=== PATIENT | female | born 1960 ===

== ENCOUNTER 2019-02-16 07:37 | Day surgery (SDC) | payer OTHER ==
[2019-02-14 14:25] VITALS: BMI 33.3
[2019-02-16 08:15] LABS: EPI CELLS 3.5 /HPF (0-5/HPF); HYALINE CASTS 1 /lpf (0-8); URINE APPEARANCE CLEAR; URINE BACTERIA 15.6 /hpf (NEGATIVE); URINE BILIRUBIN NEGATIVE (NEGATIVE); URINE COLOR YELLOW; URINE GLUCOSE (UA) NEGATIVE (NEGATIVE); URINE KETONE NEGATIVE (NEGATIVE); URINE LEUK ESTERASE NEGATIVE (NEGATIVE); URINE NITRITE NEGATIVE (NEGATIVE); URINE PROTEIN 1+ (NEGATIVE); URINE RBC 3 /hpf (0-4); URINE UROBILINOGEN 0.2 mg/dL (0.2-1.0); URINE WBC 3 /hpf (0-5)
[2019-02-16 08:22] LABS: INR 1.02 (0.83-1.09)
--- NOTE | 2019-02-16 08:22 | HP ---
Satellite [facility] - Chief Complaint Chief Complaint: right shoulder pain History of Present Illness: right shoulder impingement, RTC tear, labral tear History Source: Patient Limitations to Obtaining History: No Limitations - Past Medical History Allergies/Adverse Reactions: Allergies Allergy/AdvReac Type Severity Reaction Status Date / Time No Known Drug Allergies Allergy Verified 02/16/19 08:18 - Current Medications Current Medications: Home Medications Medication Instructions Recorded NK [No Known Home Medication] 02/14/19 Satellite Physical Exam - Physical Examination Vital Signs: Vital Signs Period Temp Pulse Resp BP Sys/Mccartney Pulse Ox Last 24 Hr 97.9 F 75 18 140/71 98 General Appearance: Well Nourished ENT: Clear Lung: Clear to auscultation Heart: Regular rate & rhythm Breasts: Soft Abdomen: Soft Extremities: No edema Satellite Impression/Plan - Impression/Plan Impression: right shoulder impingement, RTC tear, labral tear Operative Procedure: right shoulder arthroscopy, decompression, RTC repair, labral repair Date to be Performed: 02/16/19
[2019-02-16 08:25] LABS: ACTIVATED PTT 40.8 SECONDS (25.2-36.5)
[2019-02-16] MEDS ORDERED: MIDAZOLAM HCL 2 MG/2 ML SINGLE DOSE VIAL ONE ×2 (09:15)
[2019-02-16] MEDS ORDERED: DEXAMETHASONE SOD PHOSPHATE/PF 10 MG/ML SDV ONE (09:18)
[2019-02-16] MEDS ORDERED: ROPIVACAINE HCL 0.5% 30ML VIAL ONE (09:18)
[2019-02-16] MEDS ORDERED: PROPOFOL 20 ML ONE (10:09)
[2019-02-16] MEDS ORDERED: oxyCODONE HCL 5 MG TABLET PO PRN (10:26)
[2019-02-16] MEDS ORDERED: ONDANSETRON 4 MG/2 ML VIAL IVPUSH PRN (10:26)
[2019-02-16] MEDS ORDERED: LACTATED RINGERS SOLUTION 1,000 ML IV SCH (10:30)
[2019-02-16] MEDS ORDERED: ceFAZolin SODIUM 1 GM VIAL ONE (10:46)
[2019-02-16] MEDS ORDERED: ceFAZolin SODIUM 1 GM VIAL IVPB ONE (10:50)
[2019-02-16] MEDS ORDERED: DEXAMETHASONE SOD PHOSPHATE 4 MG/1 ML VIAL ONE (10:50)
--- NOTE | 2019-02-16 11:49 | OP ---
Operative Note - Note: Operative Date: 02/16/19 Pre-Operative Diagnosis: right shoulder impingement syndrome Operation: right shoulder arthroscopy, subacromial decompression, distal clavicle excision Post-Operative Diagnosis: Same as Pre-op Surgeon: Rod Early Anesthesiologist/CERTIFIED TECHNICIAN SPECIALIST: Megan Patel Anesthesia: General, Local Specimens Removed: shavings Estimated Blood Loss (mls): 25 Drains, Volume Out (mls): 0 Blood Volume Replaced (mls): 0 Fluid Volume Replaced (mls): 700 Operative Report Dictated: Yes
[2019-02-16 14:58] VITALS: BP 145/86; PULSE 97; TEMP 97.5
--- NOTE | 2019-02-16 15:31 | SPEC ---
DATE OF OPERATION: 02/16/2019 PREOPERATIVE DIAGNOSIS: Right shoulder impingement syndrome. POSTOPERATIVE DIAGNOSIS: Right shoulder impingement syndrome. PROCEDURE: Right shoulder arthroscopy, subacromial decompression, distal clavicle excision. SURGEON: Fredy Barragan MD ASSISTANTS: None. ANESTHESIA: EMRE Manuel. Right interscalene block with LM anesthesia. DRAINS: None. COMPLICATIONS: None. SPECIMEN: Arthroscopic shavings. BLOOD LOSS: Minimal. BLOOD GIVEN: None. FLUID REPLACEMENT: 700 mL Plasmalyte. This patient is a 58-year-old female with a preoperative diagnosis of right shoulder impingement syndrome, possible rotator cuff tear, possible labral tear. After understanding the potential risks, complications, alternatives, and benefits to surgery versus nonsurgical treatment, the patient elects to undergo this procedure. The patient was brought to the operating room, peripheral IV placed, IV sedation given. Then 2 g of IV Ancef was given, right interscalene block was performed. LM anesthesia was induced. She was placed into beach chair position with ample padding throughout. The right upper extremity was prepped and draped in sterile fashion. The bony landmarks were marked out with a marking pen. A posterior portal was established. A diagnostic glenohumeral arthroscopy was performed. Everything side the joint looked good. The glenoid and the humerus had no arthritis. The biceps tendon and the labrum all looked good. I inspected the labrum significantly. The patient did have a Bonita complex, and this is likely what the radiologist mistook for a labral tear, but the labrum looked absolutely fine, there was no surrounding synovitis whatsoever. The undersurface of the rotator cuff also looked perfect. Next, our attention was turned to the subacromial space. The patient had a tremendous amount of bursitis. The lateral portal was established with a spinal needle. A Green cannula was introduced in the subacromial space. The ArthroCare wand was used to do an extensive debridement/soft tissue bursectomy of the subacromial bursa and the subdeltoid bursa. This enabled us to look at the top surface of the rotator cuff and put the rotator cuff through a full range of motion. I did not see any top surface tears either. Therefore, determined there was no rotator cuff that required repair. The patient did have a huge bony subacromial spur and moderate size distal clavicle spur. Both were taken down with a 5.5-mm oval bur fine-tuned in reverse and then with a straight shaver. I again looked at the top, searched the rotator cuff, and again did not see any abnormal pathology. The area was copiously irrigated and washed out. All instrumentation and debris were removed. The arthroscopy portals were closed with 3-0 nylon sutures. The area was then washed and dried and covered with Aquacel dressing. The patient was put into a sling, extubated. Total surgical time was about 40 minutes. There were no complications during the case. She was brought to the ambulatory recovery in stable condition. FREDY BARRAGAN M.D. [id number]
--- NOTE | 2019-02-18 15:48 | PATH ---
Surgical Pathology Report Patient Name: MYRNA JULIAN [facility]. Rec. #: [id number] /Age/Gender: 1960 (Age: 58) / F Account: [id number] Location: [facility] Taken: 02/16/2019 Received: 02/16/2019 Reported: 02/18/2019 Physicians: Rod Early M.D. Specimen(s) Received RIGHT SHOULDER SHAVINGS Clinical History Tear right shoulder Final Diagnosis SHOULDER SHAVINGS, RIGHT, ARTHROSCOPY: FRAGMENTS OF BENIGN CARTILAGE, BONE, DENSE FIBROCONNECTIVE TISSUE, ADIPOSE TISSUE, AND SKELETAL MUSCLE. Electronically Signed Harper Doherty M.D. Gross Description Received in formalin, labeled "right shoulder shavings," is a 6.0 x 4.5 x 0.6 cm. aggregate of delaney-yellow soft tissue fragments. A nutrition representative portion is submitted in one cassette. /02/17/2019 saudi02/17/2019
== END 2019-02-16 15:01 | disposition home or self-care (01) ==
LOC: JASU-SURG 07:37
PROVIDERS: ATTEND Orthopaedic Surgery
PROC: 0RNJ4ZZ Release Right Shoulder Joint, Percutaneous Endoscopic Approach (ICD-10-PCS; 2019-02-16)
PROC: 0PB94ZZ Excision of Right Clavicle, Percutaneous Endoscopic Approach (ICD-10-PCS; principal; 2019-02-16 09:30)
DX: M75.41 Impingement syndrome of right shoulder (principal); M75.51 Bursitis of right shoulder
CPT/HCPCS: 36415; 81003; 85610; 85730; 94760